=== PATIENT | female | born 1990 | race Caucasian/White ===

== ENCOUNTER 2024-06-05 09:33 | Emergency (ER) | payer SELFPAY ==
[~2024-06-05] VITALS: Ht 162.6 cm; Wt 74.0 kg
[2024-06-05 09:38] VITALS: O2SAT 98
[2024-06-05 11:20] VITALS: BP 121/72; PULSE 83; RESP 14; TEMP 36.7; O2SAT 100
== END 2024-06-05 11:30 | disposition home or self-care (01) ==
LOC: ER 09:33
DX: O20.0 Threatened abortion (principal); Z3A.24 24 weeks gestation of pregnancy
CPT/HCPCS: 76805; 99284